=== PATIENT | male | born 1950 | race Caucasian/White ===

== ENCOUNTER 2017-09-23 22:32 | Emergency (ER) | payer BC, MEDICARE ==
[2017-09-24] MEDS ORDERED: fentaNYL* 50 MCG/ML 2 ML VIAL (100 MCG VIAL) ONE (00:19)
[2017-09-24] MEDS ORDERED: Midazolam* 1 MG/ML 5 ML VIAL (5 MG) ONE (00:20)
[2017-09-24] MEDS ORDERED: Flumazenil* 0.1 MG/ML 5 ML MDV ONE (00:21)
[2017-09-24] MEDS ORDERED: Naloxone* 0.4 MG/ML 10 ML VIAL ONE (00:21)
[2017-09-24 01:46] VITALS: BP 132/83
--- NOTE | 2017-09-24 05:15 | ED ---
Soy Cole Jade, scribed for Jannet Robledo MD on 09/24/17 at 0000 . Upper Extremity Pain - HPI Summary HPI Summary: Pt is a 66 y/o male who presents to the ED c/o right shoulder pain. He states he fell at 22:00 on his right arm, which caused his shoulder to move upwards. Pt states he heard a snap in his shoulder. He denies ever dislocating his shoulder before. Pain is described as 10/10 in severity and is sharp. PMHx bilateral rotator cuff surgery. - History of Current Complaint Chief Complaint: EDShouldKi Stated Complaint: RT SHOULDER INJURY Time Seen by Provider: 09/23/17 22:57 Hx Obtained From: Patient Mechanism Of Injury: Fall From A Standing Position Onset/Duration: Started Hours Ago - 22:00, Still Present Timing: Constant Severity Currently: Severe - 10/10 Pain Location: Shoulder - Right Character: Sharp Aggravating Factor(s): Nothing Alleviating Factor(s): Nothing - Allergies/Home Medications Allergies/Adverse Reactions: Allergies Allergy/AdvReac Type Severity Reaction Status Date / Time hayfever Allergy Unknown Uncoded 04/30/12 10:32 Reaction Details oxycodone/acetominophen Allergy nausea,vomi Uncoded 04/30/12 10:32 ting,dizzin ess PMH/Surg Hx/FS Hx/Imm Hx Cardiovascular History: Denies: Hx Pacemaker/ICD Musculoskeletal History: Reports: Other Musculoskeletal History - 01/01/2012 fell off ladder. back, bilat hip pain Denies: Hx Rheumatoid Arthritis, Hx Osteoporosis Sensory History: Reports: Hx Contacts or Glasses - GLASSES, Hx Hearing Aid - RIGHT EAR Opthamlomology History: Reports: Hx Contacts or Glasses - GLASSES Neurological History: Denies: Other Neuro Impairments/Disorders - head/neck pain Psychiatric History: Denies: Hx Panic Disorder - Surgical History Surgery Procedure, Year, and Place: 2006 RIGHT SHOULDER SURGERY, [facility] [place] 2003 LEFT [place]GUINAL HERNIA REPAIR, [place] Hx Anesthesia Reactions: No - Immunization History Date of Tetanus Vaccine: n Date of Influenza Vaccine: ukn Infectious Disease History: No Infectious Disease History: Denies: Traveled Outside the [place] in Last 30 Days - Family History Known Family History: Negative: Cardiac Disease, Other - Prostate cancer - Social History Alcohol Use: None Substance Use Type: Reports: None Smoking Status (MU): Former Smoker Review of Systems Negative: Fever Positive: Arthralgia - Right shoulder All Other Systems Reviewed And Are Negative: Yes Physical Exam - Summary Physical Exam Summary: VITAL SIGNS: Reviewed. GENERAL: Patient is a well-developed and nourished MALE. Patient is not in any acute respiratory distress. HEAD AND FACE: No signs of trauma. No ecchymosis, hematomas or skull depressions. No sinus tenderness. EYES: PERRLA, EOMI x 2, No injected conjunctiva, no nystagmus. EARS: Hearing grossly intact. Ear canals and tympanic membranes are within normal limits. MOUTH: Oropharynx within normal limits. NECK: Supple, trachea is midline, no adenopathy, no JVD, no carotid bruit, no c- spine tenderness, neck with full ROM. CHEST: Symmetric, no tenderness at palpation LUNGS: Clear to auscultation bilaterally. No wheezing or crackles. CVS: Regular rate and rhythm, S1 and S2 present, no murmurs or gallops appreciated. ABDOMEN: Soft, non-tender. No signs of distention. No rebound no guarding, and no masses palpated. Bowel sounds are normal. EXTREMITIES: FROM in all major joints, no edema, no cyanosis or clubbing. Deformity of right shoulder. NV exam intact distally. NEURO: Alert and oriented x 3. No acute neurological deficits. Speech is normal and follows commands. SKIN: Dry and warm Triage Information Reviewed: Yes Vital Signs On Initial Exam: Initial Vitals Temp Pulse Resp BP Pulse Ox 97.6 F 114 20 147/89 98 09/23/17 22:33 09/23/17 22:33 09/23/17 22:33 09/23/17 22:33 09/23/17 22:33 Vital Signs Reviewed: Yes Procedures - Procedure Summary Procedure Summary: Moderate sedation procedure: Informed consent was obtained. Moderate sedation protocol was followed. Pt was given 100 mcg Fentanyl and 5 mg Versed IV to accomplish the shoulder reduction. Vital signs remained stable throughout the procedure. No reversal agent was used. Total time spent was 15 minutes. - Joint Reduction Right Joint Reduction Site: shoulder (R) Conscious Sedation: Yes - Fentanyl and Versed Reduction Attempts: 1 - Used traction-countertraction Pre-Procedure NV Exam: Yes - Vital signs remained stable throughout procedure Post Joint Reduction Film: joint reduced - Deformity improved after, shoulder XR ordered to confirm Diagnostics - Vital Signs Vital Signs Temp Pulse Resp BP Pulse Ox 09/23/17 22:33 97.6 F 114 20 147/89 98 - Laboratory Lab Statement: Any lab studies that have been ordered have been reviewed, and results considered in the medical decision making process. - Radiology Right Shoulder XR Xray Interpretation: Positive (See Comments) - Anterior dislocation of the humeral head. Pending official radiology report. Radiology Interpretation Completed By: ED Physician Right shouler XR Xray Interpretation: Positive (See Comments) - Post-procedure XR: Good alignment. No fracture. AC separation. Pending official radiology report. Radiology Interpretation Completed By: ED Physician Course/Dx - Course Course Of Treatment: Pt is a 66 y/o male c/o right shoulder pain s/p fall at 22: 00. He fell on his right arm, which caused his shoulder to move upwards, and heard a snap. PMHx bilateral rotator cuff surgery. A physical exam revealed deformity of right shoulder, NV exam intact distally. An initial shoulder XR revealed anterior dislocation of the humeral head. A moderate sedation procedure was performed: 100 mcg Fentanyl and 5 mg Versed IV to accomplish the shoulder reduction. Vital signs remained stable throughout the procedure. No reversal agent was used. The right shoulder was reduced using traction- countertraction, and the deformity was improved after. A post-procedure shoulder XR revealed good alignment, no fracture, and AC separation. Final dx are right shoulder dislocation and AC separation. Pt is discharged home with instructions to wear a sling for 1 week and follow up with orthopedics. He is agreeable with this plan. - Diagnoses Provider Diagnoses: AC separation, Dislocation of right shoulder joint Discharge - Sign-Out/Discharge Documenting (check all that apply): Discharge/Admit/Transfer - Discharge - Discharge Plan Condition: Stable Disposition: HOME Patient Education Materials: Acromioclavicular Separation (ED), Shoulder Dislocation (ED) Referrals: David Quintana MD [Primary Care Provider] - Rodney Gomez MD [Medical Doctor] - 1 Day Additional Instructions: RETURN TO THE EMERGENCY DEPARTMENT FOR CHANGING OR WORSENING SYMPTOMS. Wear sling for 1 week. Follow up with orthopedics. The documentation as recorded by the Soy jeffers Jade accurately reflects the service I personally performed and the decisions made by Meena grissom Abdul, MD.
--- NOTE | 2017-09-24 07:34 | RAD ---
INDICATION: Postreduction COMPARISON: Right shoulder same date TECHNIQUE: A single AP view is submitted were obtained. FINDINGS: There is satisfactory reduction. The shoulder appears slightly high riding likely secondary to rotator cuff tear. There may be minor widening at the AC joint. IMPRESSION: SATISFACTORY REDUCTION.
--- NOTE | 2017-09-24 15:48 | RAD ---
INDICATION: Anterior shoulder dislocation COMPARISON: None TECHNIQUE: Multiple views were obtained. FINDINGS: There is anterior shoulder dislocation. There is no underlying fracture but this can be reevaluated on the postreduction films. There is a Hill-Sachs deformity. IMPRESSION: ANTERIOR SHOULDER DISLOCATION WITH HILL-SACHS DEFORMITY.
== END 2017-09-24 01:45 | disposition home or self-care (01) ==
LOC: ED 22:32
DX: S43.101A Unspecified dislocation of right acromioclavicular joint, initial encounter (principal); W19.XXXA Unspecified fall, initial encounter; Y92.9 Unspecified place or not applicable; Z87.891 Personal history of nicotine dependence; Z88.3 Allergy status to other anti-infective agents
CPT/HCPCS: 99285; J2250; J2310; J3010